=== PATIENT | female | born 1975 | race Caucasian/White ===

== ENCOUNTER 2016-10-15 19:32 | Emergency (ER) | payer MEDICAID ==
--- NOTE | 2016-10-15 20:02 | EDPHY ---
HPI/HX/ROS/PE/MDM Narrative: CHIEF COMPLAINT: Took double dose of Nucynta. HPI: The patient is a 41-year-old female who presents with confusion after taking 4 Nucynta pills (she usually takes 1-2) as she had forgotten she took the first dose. She last took it around 1700 (3 hours ago). Since then she reports a subjective difficulty in understanding what is going on, however this has been improving. She admits an episode of vomiting. She denies taking any other medications tonight. She denies SI or other medical complaints at this time. REVIEW OF SYSTEMS: Aside from elements discussed in the HPI, a comprehensive 10-point review of systems was reviewed and is negative. PMH: Chronic back pain, asthma, heartburn. SOCIAL HISTORY: Former smoker. PHYSICAL EXAM: General: Patient is alert, in no acute distress. ENT: Pupils 6mm and reactive (while sitting in a dark room). ENT inspection normal. Neck: Normal inspection. Full range of motion. Respiratory: No respiratory distress. Breath sounds normal bilaterally. Cardiovascular: Regular rate and rhythm. Strong peripheral pulses. Abdomen: The abdomen is nontender to palpation. There are no peritoneal signs. There are normal bowel sounds. Back: Normal to inspection. No tenderness to palpation. Skin: Normal color. No rash. Warm and dry. Extremities: Normal appearance. Full range of motion. Neuro: Oriented x3. Normal motor function. Normal sensory function. Portions of this note were transcribed by an ED scribe. I personally performed the history, physical exam, and medical decision making; and confirm the accuracy of the information in the transcribed note. ED Course: Patient refused an IV. An EKG was obtained. EKG was ordered and interpreted by myself. Please see [employer] system for official reading. MDM: This patient presents with altered mental status after taking double dose of her Nucynta. On exam, patient states that her symptoms have largely resolved. I see no abnormalities on physical exam nor EKG, nor vital signs. The patient was observed in the emergency department for several hours, past the initial half life of Nucynta and she continues to feel fine. I do not think that further observation or workup is indicated. - Data Points Medications Given: Discontinued Medications Sodium Chloride (Ns) 1,000 mls @ 0 mls/hr IV ONCE ONE PRN Reason: Wide Open Stop: 10/15/16 20:25 Last Admin: 10/15/16 20:30 Dose: Not Given General Time Seen by Provider: 10/15/16 20:02 Initial Vital Signs: Initial Vital Signs Heart Rate 77 10/15/16 19:40 Respiratory Rate 16 10/15/16 19:40 Blood Pressure 163/107 H 10/15/16 19:40 O2 Sat (%) 98 10/15/16 19:40 O2 Delivery Mode Room Air Allergies/Adverse Reactions: No Known Allergies Allergy (Unverified 09/05/13 13:34) Home Medications: Medication Instructions Recorded ADVAIR HFA 115-21 MCG INHALER 09/05/13 Albuterol Hfa Anes Only 09/05/13 Cephalexin [Keflex (RX)] 500 mg PO QID #40 cap 09/05/13 MORPHINE SULFATE [Avinza 45 mg] 09/05/13 Prilosec 20 mg 09/05/13 Sulfamethox/Tmp 800/160 mg 1 tab PO BID #20 tab 09/05/13 [Bactrim Ds] oxyCODONE IR [Oxycodone HCl Ir] 15 mg PO 09/05/13 Departure - Departure Disposition: Home, Routine, Self-Care Clinical Impression: Opiate overdose, Accidental medication overdose Condition: Good Instructions: Chronic Back Pain (ED) Additional Instructions: Follow up with your primary care provider this week for reevaluation. If you need a primary care provider you have been given the telephone number of the on- call outpatient doctor. Return to the emergency department for any serious worsening of condition. Referrals: Henny Melgar MD [Medical Doctor] - As per Instructions Report Scribed for: Ousmane Irby Report Scribed by: Stu Briones Date of Report: 10/15/16 Time of Report: 20:25
[2016-10-15] MEDS ORDERED: NS 1,000 ML IV ONE (20:24)
--- NOTE | 2016-10-15 20:40 | CPEKG ---
Heart Rate: 73 RR Interval: 822 P-R Interval: 176 QRSD Interval: 90 QT Interval: 380 QTC Interval: 419 P [place]: 60 QRS [place]: 5 T Wave [place]: 39 EKG Severity - NORMAL ECG - EKG Impression: SINUS RHYTHM EKG Impression: Agree with above Electronically Signed By: Corbin Anderson 17-Oct-2016 17:51:03
[2016-10-15 21:34] VITALS: BP 137/89; PULSE 88; RESP 18; O2SAT 94
== END 2016-10-15 21:33 | disposition home or self-care (01) ==
DX: T40.2X1A Poisoning by other opioids, accidental (unintentional), initial encounter (principal); J45.909 Unspecified asthma, uncomplicated; Z87.891 Personal history of nicotine dependence

== ENCOUNTER 2016-11-07 17:49 | Inpatient (IN) | payer MEDICAID ==
[2016-11-07] MEDS ORDERED: VANCOMYCIN HCL/NORMAL SALINE 250 ML IV ONE (19:39)
[2016-11-07] MEDS ORDERED: ONDANSETRON DISINTEGRATING 4 MG TAB PO PRN (20:17)
[2016-11-07] MEDS ORDERED: ONDANSETRON 4 MG/2 ML VIAL IVP PRN (20:17)
--- NOTE | 2016-11-07 20:45 | GHP ---
[f rep st] HISTORY AND PHYSICAL DATE OF ADMISSION: 11/07/2016 HISTORY OF PRESENT ILLNESS: The patient is a pleasant 41-year-old female with a past medical histor y of chronic back pain who presents with right lower extremity erythema. She cut it on the side of her bed a couple days ago. It has gotten progressively worse. She has had some fever and chills. There has been no lymphangitic streaking up her leg. She has not had any drenching night sweats. S he has been able to walk. She has never had skin infections before. She denies a history of IV drug use, although there is so me questionable on track noriega on her lower extremities. REVIEW OF SYSTEMS: A complete 10-point review of systems conducted, negative except as noted in the HPI. PAST MEDICAL HISTORY: Chronic back pain, chronic narcotics, asthma. ALLERGIES: Possibly Nucynta. MEDICATIONS: An older list includes fentanyl citrate, oxycodone 15 q. ? p.r.n., Prilosec, morphine sulphate, albuterol, Advair. SOCIAL HISTORY: She works in retail. Does not smoke cigarettes or drink alcohol. FAMILY HISTORY: Reviewed and unremarkable. PHYSICAL EXAM: VITAL SIGNS: Presenting vitals: Temperature 37.4, blood pressure 123/77, pulse 100 , breathing 20 times a minute, 96% on room air. GENERAL: Mild distress. HEENT: Sclerae anicteric . Oropharynx clear. Mucous membranes moist. NECK: Supple without lymphadenopathy or JVD. LUNGS: Clear to auscultation bilaterally. HEART: S1, S2 without murmurs. ABDOMEN: Soft, nontender, no ndistended. LOWER EXTREMITIES: Her left lower extremity is normal. Right lower extremity shows er ythema and edema. It is all below the knee. There is no lymphangitic streaking. There is no ingui nal lymphadenopathy. SKIN: Without rash, although the lower extremities have some small bruises wi th punctate that could be consistent with track noriega. RADIOLOGY: Ankle film shows no fracture. The film is reviewed and interpreted by me. Extremity ve nous ultrasound is pending. Labs are pending. I have discussed the case with CURTIS Albrecht, in the emergency department. ASSESSMENT/PLAN: A 41-year-old female with right lower extremity cellulitis. 1. Cellulitis. Vancomycin started. She received a dose down here. I want to ensure that blood cu ltures have been drawn. 2. Question deep venous thrombosis. Low suspicion for DVT, but follow up on the ultrasound. 3. Chronic pain. Will continue narcotics when medications have been reconciled. I have written he r for oxycodone 10-20 daily p.r.n. now. 4. Prophylaxis. Pharmacologic prophylaxis indicated. We will start low-molecular heparin in the m orning. DISPOSITION: Inpatient status. /[id number]/MODL
[2016-11-07] MEDS ORDERED: ALBUTEROL 60 PUFFS/8 GM MDI IH PRN (21:11)
[2016-11-07] MEDS: oxyCODONE IR 5 MG TAB PO PRN (21:12)
[2016-11-07] MEDS: ACETAMINOPHEN 325 MG TAB PO PRN (21:15)
[2016-11-07] MEDS ORDERED: fentaNYL 25 MCG PATCH TD SCH (21:30)
--- NOTE | 2016-11-07 22:30 | EDPHY ---
H & P Stated Complaint: inj r foot and ankle on bunk bed/now with fever Time Seen by Provider: 11/07/16 18:31 HPI/ROS: Chief complaint: Right leg pain, redness and swelling History of present illness: This is a 41-year-old female who presents to the emergency department for evaluation of right leg pain redness and swelling. Patient reports the onset of symptoms over the last few days. She states a few days ago she struck her leg against a bunk bed cutting it. She has developed pain, redness and swelling around the site. Symptoms are slowly worsening. She denies alleviating factors. She denies other associated signs or symptoms including no fevers or chills, no red streaking up the leg, no chest pain or shortness breath, no abnormal coolness or paresthesias in the right lower extremity. Review of systems: A 10 point review of systems was obtained and other than described above was negative - Personal History LMP (Females 10-55): 15-21 Days Ago Current Tetanus/Diphtheria Vaccine: Yes - Medical/Surgical History Hx Asthma: Yes Hx Chronic Respiratory Disease: No Hx Diabetes: No Hx Cardiac Disease: No Hx Renal Disease: No Hx Cirrhosis: No Hx Alcoholism: No Hx HIV/AIDS: No Hx Splenectomy or Spleen Trauma: No Other PMH: PMH- Chronic lower back pain, asthma, heart burn. no surgeries reported - Social History Smoking Status: Former smoker - Physical Exam Exam: General Appearance: Alert, nontoxic. Eyes: Pupils equal and round no pallor or injection. ENT, Mouth: Mucous membranes moist. Respiratory: There are no retractions, lungs are clear to auscultation. Cardiovascular: Regular rate and rhythm. DP and PT pulses 2+ bilaterally. Gastrointestinal: Abdomen is soft and nontender, no masses, bowel sounds normal. Neurological: Alert and oriented. Strength and sensation intact and symmetrical. Skin: Warm and dry, no rashes. There is erythema and edema to the right foot, ankle and lower leg. Musculoskeletal: The the right leg is edematous compared to the left leg. She has good range of motion of the right leg. Psychiatric: Patient is oriented X 3, there is no agitation. Constitutional: Initial Vital Signs Temperature (C) 37.4 C 11/07/16 17:53 Heart Rate 100 11/07/16 17:53 Respiratory Rate 20 11/07/16 17:53 Blood Pressure 123/77 H 11/07/16 17:53 O2 Sat (%) 96 11/07/16 17:53 O2 Delivery Mode Room Air Allergies/Adverse Reactions: tapentadol [From Nucynta] Allergy (Severe, Verified 11/07/16 20:41) Other-Enter Comments Home Medications: Medication Instructions Recorded Albuterol [Proventil Inhaler HFA 1 - 2 puffs IH Q4H PRN 11/07/16 (*)] fentaNYL [Duragesic 25 MCG Patch 25 mcg TD Q72H 11/07/16 (*)] Medical Decision Making - Diagnostics Imaging Results: Imaging Impressions Ankle X-Ray 11/07/16 19:18 Impression: Negative for fracture or osseous erosive change. Results called and discussed with Luis Lam PA-C, on November 07, 2016 at 1953 hours. Extremity Venous Study 11/07/16 19:18 Impression: 1. Segment of abnormality is seen involving the common femoral vein, which may be the residua of previous surgery or partially recanalized deep vein thrombosis. 2. Superficial thrombophlebitis at the level of the right ankle in the greater saphenous vein. 3. Enlarged right inguinal lymph nodes are probably reactive. Results called and discussed with CURTIS Albrecht, on November 07, 2016 at 2022 hours. Imaging: I viewed and interpreted images myself ED Course/Re-evaluation: Patient is discussed with my secondary supervising physician Dr. Meño Singh. Patient presents to the emergency department for evaluation of pain, redness and swelling to the right lower leg. The leg is neurovascularly intact. Given trauma an x-ray is obtained and negative for acute findings. Ultrasound is obtained to rule out DVT. Superficial thrombophlebitis is noted. I do believe this is likely a cellulitis. I do believe inpatient management is warranted. Patient has extremely difficult IV access. We cannot obtain peripheral IV access the emergency room. Interventional radiology is consulted, Dr. Henrietta Jimenez. She will place a PICC line. At that time blood studies will be obtained and IV antibiotics started. The patient is admitted to Dr. Charles Welsh for further evaluation and care. The plan has been discussed with the patient voiced understanding and agreement with it. Differential Diagnosis: Included but not limited to cellulitis, abscess, DVT, necrotizing fasciitis Departure - Departure Disposition: [facility] Inpatient Acute Clinical Impression: Cellulitis of right leg Superficial thrombophlebitis Qualifiers: Superficial thrombophlebitis-Involved body area: lower extremity Laterality: right Qualified Code(s): I80.01 - Phlebitis and thrombophlebitis of superficial vessels of right lower extremity Condition: Good
[2016-11-07] MEDS ORDERED: CYCLOBENZAPRINE 10 MG TAB PO PRN (22:31)
[2016-11-07 22:52] LABS: ADD MORPH? NO; ADD SCAN? YES; ATYPICAL LYMPHOCYTE FLAG 0 (0-99); FRAGMENT RBC FLAG 0 (0-99); HEMOGLOBIN 10.7 g/dL (12.6-16.3); LIPEMIA HEMOLYSIS FLAG 90 (0-99); MEAN CELL HEMOGLOBIN 28.1 pg (27.9-34.1); MEAN CELL HEMOGLOBIN CONCENTR. 34.5 g/dL (32.4-36.7); MEAN CELL VOLUME 81.4 fL (81.5-99.8); MEAN PLATELET VOLUME 9.1 fL (8.7-11.7); PLATELET CLUMPS FLAG 0 (0-99); PLATELET COUNT 166 10^3/uL (150-400); RED BLOOD CELL COUNT 3.81 10^6/uL (4.18-5.33); RED CELL DISTRIBUTION WIDTH 14.5 % (11.5-15.2)
[2016-11-07 22:54] LABS: LEFT SHIFT FLG 140 (0-99)
[2016-11-07 22:59] LABS: ANION GAP 7 mEq/L (8-16); CALCIUM 8.3 mg/dL (8.5-10.4); CARBON DIOXIDE 24 mEq/l (22-31); CHLORIDE 101 mEq/L (97-110); CREATININE 0.6 mg/dL (0.6-1.0); GLOMERULAR FILTRATION RATE > 60; GLUCOSE 169 mg/dL (70-100); POTASSIUM 3.4 mEq/L (3.5-5.2); SODIUM 132 mEq/L (134-144)
[2016-11-07 23:11] LABS: TROPONIN I < 0.012 ng/mL (0-0.034)
--- NOTE | 2016-11-07 23:12 | CPEKG ---
Heart Rate: 88 RR Interval: 682 P-R Interval: 164 QRSD Interval: 90 QT Interval: 356 QTC Interval: 431 P [place]: 40 QRS [place]: 11 T Wave [place]: 16 EKG Severity - NORMAL ECG - EKG Impression: SINUS RHYTHM Electronically Signed By: Carlos Sampson 08-Nov-2016 08:23:11
[2016-11-07] MEDS: NS 1,000 ML IV SCH (23:27)
[2016-11-07 23:35] LABS: ADD DIFF? YES; SCAN POSITIVE
[2016-11-07 23:43] LABS: PLATELET ESTIMATE ADEQUATE (ADEQ)
[2016-11-07] MEDS ORDERED: IOPAMIDOL (ISOVUE 370) 100 ML BTL IV ONE (23:58)
[2016-11-08] MEDS: ENOXAPARIN 80 MG/0.8 ML SYR SC SCH ×3 (00:25→20:07)
[2016-11-08] MEDS: oxyCODONE IR 5 MG TAB PO PRN ×7 (01:26→22:04)
[2016-11-08] MEDS: ACETAMINOPHEN 325 MG TAB PO PRN ×4 (01:27→22:04)
[2016-11-08 05:04] LABS: ATYPICAL LYMPHOCYTE FLAG 0 (0-99); FRAGMENT RBC FLAG 0 (0-99); HEMATOCRIT 29.8 % (38.0-47.0); HEMOGLOBIN 10.2 g/dL (12.6-16.3); LIPEMIA HEMOLYSIS FLAG 90 (0-99); MEAN CELL HEMOGLOBIN 27.9 pg (27.9-34.1); MEAN CELL HEMOGLOBIN CONCENTR. 34.2 g/dL (32.4-36.7); MEAN CELL VOLUME 81.4 fL (81.5-99.8); MEAN PLATELET VOLUME 9.3 fL (8.7-11.7); PLATELET CLUMPS FLAG 0 (0-99); PLATELET COUNT 168 10^3/uL (150-400); RED BLOOD CELL COUNT 3.66 10^6/uL (4.18-5.33); RED CELL DISTRIBUTION WIDTH 14.6 % (11.5-15.2)
[2016-11-08 05:18] LABS: ADD MORPH? NO; ADD SCAN? YES
[2016-11-08 05:29] LABS: ANION GAP 8 mEq/L (8-16); CALCIUM 8.1 mg/dL (8.5-10.4); CARBON DIOXIDE 24 mEq/l (22-31); CHLORIDE 106 mEq/L (97-110); CREATININE 0.6 mg/dL (0.6-1.0); GLOMERULAR FILTRATION RATE > 60; GLUCOSE 118 mg/dL (70-100); POTASSIUM 3.6 mEq/L (3.5-5.2); SODIUM 138 mEq/L (134-144)
[2016-11-08 06:06] LABS: LEFT SHIFT FLG 110 (0-99)
[2016-11-08 06:26] LABS: ADD DIFF? YES; SCAN POSITIVE
[2016-11-08 06:35] LABS: PLATELET ESTIMATE ADEQUATE (ADEQ); TOXIC GRANULATION PRESENT
[2016-11-08] MEDS: NS 1,000 ML IV SCH (07:50)
[2016-11-08] MEDS ORDERED: ENOXAPARIN 40 MG/0.4 ML SYR SC SCH (09:00)
--- NOTE | 2016-11-08 09:28 | HOSPPROG ---
Hospitalist Progress Note Assessment/Plan: 41 y/o female new to my care today (H&P by Dr. Welsh was reviewed) presenting with # Right leg cellulitis improving -will transition to IV ANCEF -keep leg elevated # New pruritic right sided chest and back pain with CTA neg for PE suspect acute muscle spasm vs pleurisy -trial IV toradol/lidoderm patch/valium # History of chronic pain with opioid dependency -cont home dose of duragesic and oxycodone # Segment of abnormality is on leg doppler involving the common femoral vein, which may be the residual of previous surgery or partially recanalized deep vein thrombosis. -will continue anticoagulation for now and plan to review imaging with radiology Continue inpatient care Subjective: reports severe sharp pain in right breast and radiating to flank and upper back. pain is worse with deep inspiration and movment. no fevers or chills. denies trauma, but has been using her upper body more to get around to compensate for her swollen right leg Objective: Vital Signs Temp Pulse Resp BP Pulse Ox 37.0 C 87 5 L 128/84 H 95 11/08/16 08:00 11/08/16 08:00 11/08/16 08:00 11/08/16 08:00 11/08/16 08:00 Laboratory Results 11/08/16 04:45 11/08/16 04:45 11/07/16 11/08/16 11/09/16 05:59 05:59 05:59 Intake Total 550 Output Total 2 Balance 548 cta chest prelim read neg for PE - Physical Exam Constitutional: uncomfortable Cardiovascular: regular rate and rhythym, no murmur, rub, or gallop, other ( right chest is tender to palp without signs of infection), No JVD Respiratory: no respiratory distress, no rales or rhonchi, clear to auscultation Gastrointestinal: normoactive bowel sounds, soft, non-tender abdomen, no palpable masses, No guarding, No rebound Genitourinary: no bladder fullness, no bladder tenderness, no renal bruits Skin: other (right lower leg with improving erythema without signs of abscess slight induration over lateral calf wihtout fluctuance) Neurologic: AAOx3, sensation intact bilaterally ICD10 Worksheet Patient Problems: Problems Problem Status Onset Cellulitis of right leg Acute Superficial thrombophlebitis Acute
[2016-11-08] MEDS ORDERED: LIDOCAINE 5% 1 EA PATCH TD SCH (09:30)
[2016-11-08] MEDS ORDERED: VANCOMYCIN HCL/NORMAL SALINE 250 ML IV SCH (11:30)
[2016-11-08] MEDS: KETOROLAC 30 MG/1 ML SDV IVP PRN ×3 (11:49→23:57)
[2016-11-08] MEDS: ceFAZolin 2 GM/DEXTROSE 100 ML IV SCH ×2 (14:03→23:24)
--- NOTE | 2016-11-08 15:45 | WOCRNPDOC ---
JOSE J Advanced Assessment Note - Skin Integrity Problem, Advanced Assess Left Hip Dressing Type: Allevyn Life Dressing Description: Shadowed Exudate Amount: Excessive Exudate Characteristic(s): Sanguinopurulent, Thick Integumentary Issue Intervention: Dressing Changed (Hydrofera blue tunnel; Cavilon prep; steristrip; Allevyn (small)), Dressing Initialed & Dated Nguyen Wound Tissue: Erythema (radiating 2 cm outward from wound margin), Non- blanching, Swollen, Indurated Nguyen Wound Swelling: Mild Wound Bed Color: Red, Yellow Wound Bed Constitution: Undermining (1 cm circumferentially), Mixed Loose & Adhered Slough/Eschar Wound Edges: Not Attached, Well Defined Site Odor: Slight, Musky Site Measurement - Head-to-Toe Length X Width X Depth (cm): 2 x 1.1 x 3. 1cm circumferential undermining) Pressure Injury Stage: Stage 4 (based on presentation ) Pressure Injury Present on Admit: Yes (noted on principle software engineer assessment) Skin Integrity Problem Comment: Copious amount of zykece-ukycf-egg purulent drainage on dressing and extruding from wound upon dressing removal. 50% of the wound opening was occluded by semi-dry slough, most of which was readily debrided during an irrigation of the wound with sterile NS and gauze surface cleaning. Patient endorsed painful tenderness to slight touch at erythematous, indurated intact periwound. Have noted that wound is a pressure injury based on patient statement, "I thought I was sore from laying on my side.". Following wound irrigation, filled void space with Hydrofera blue tunnel dressing, secured with steristrips; protected site with Allevyn dressing. Explained care as provided; MISBAH Clements present, assisting.
[2016-11-08 16:18] LABS: ALBUMIN 2.6 g/dL (3.5-5.0); BILIRUBIN,TOTAL 0.6 mg/dL (0.1-1.4); BILIRUBIN-CONJUGATED 0.5 mg/dL (0.0-0.5); BILIRUBIN-UNCONJUGATED 0.1 mg/dL (0.0-1.1); TOTAL PROTEIN 5.4 g/dL (6.3-8.2)
[2016-11-08] MEDS: DIAZEPAM 5 MG TAB PO PRN ×2 (17:14→22:04)
--- NOTE | 2016-11-08 19:40 | GCON ---
[f rep st] CONSULTATION INFECTIOUS DISEASE CONSULTATION DATE OF CONSULTATION: 11/08/2016 REFERRING PHYSICIAN: Haider Phan DO REASON FOR CONSULTATION: Bacteremia. HISTORY OF PRESENT ILLNESS: A 41-year-old woman with a chronic back pain and history of asthma, who presented to the emergency room yesterday with complaints of right lower pain and redness status post hitting a bed a couple of days prior to admission. She denies that she is being abused. She denies knowledge of past history of DVT. She does admit that a couple of days ago she did have a sore throat. Her current primary complaint is severe right upper chest pain that is worse with deep inspiration and movement. The patient is very diaphoretic at the time of exam and is difficult to get a history from. She denies a history of IV drug use, but has obvious track noriega and/or bruises on her lower extremities. She was started on IV vancomycin on admission and transitioned to cefazolin today. PAST MEDICAL HISTORY: Chronic back pain, chronic narcotic use, asthma/COPD. ALLERGIES: No antibiotic allergies. MEDICATIONS: Fentanyl, oxycodone, Prilosec, morphine, albuterol, Advair, Tylenol, cefazolin 2 g IV q.8h. (started 11/08/2016), Valium, Lovenox, Duragesic , Toradol, lidocaine, Zofran. 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 Quit cigarettes years ago. No alcohol and denies drugs. FAMILY HISTORY: Negative for DVT. REVIEW OF SYSTEMS: A complete 10-point review of systems was performed and was negative, except as mentioned in the HPI. . PHYSICAL EXAM: VITAL SIGNS: Blood pressure 143/91, heart rate 97, respiratory rate, saturation 95% on room air, temperature 35.9. GENERAL: This is a diaphoretic woman who appears in distressed secondary to upper chest pain. HEENT: Fair dentition, moist mucous membranes, no exudates or ulcerations. NECK: Supple. No lymphadenopathy. No meningismus. CARDIOVASCULAR: Tachycardic. Regular rate. Faint systolic murmur. EXTREMITIES: Patient has scattered bruises/track noriega of her lower extremities. There is erythema on the right lower extremity, most prominent on the medial ankle, with associated a thrombosed vein tender to palpation. NEUROLOGICAL: Distractible, but oriented, following commands, and moving all 4 extremities equally. SKIN: As per her exam above, no peripheral stigmata of endocarditis, but noted track noriega. PULMONARY: Lungs were clear. No crackles. Of note, patient has a left hip wound that was not noted by me at the time of my exam. It was later reported to me by Wound Care that is 3 cm in depth LABORATORY: White count 7000 with 43% neutrophils, 50% bands, platelets of 168 , hematocrit 39. Creatinine 0.6. LFTs are pending. Chest CT was personally reviewed by me with Radiology and shows underlying emphysema, but no pleural effusion, no aortic dissection, no bony abnormalities to account for her pain, and no PE. Blood cultures from admission on 11/07: Both sets are growing group A strep. ASSESSMENT AND PLAN: This is a 41-year-old woman with right lower extremity superficial thrombophlebitis of the right ankle and associated cellulitis with associated group A Streptococcus bacteremia. Suspect source could be related to IV drug use. The patient does not admit to this at this time. Also, concern for this severe right upper chest pain, not clearly musculoskeletal, CT scan does not show potential source for this pain. Could consider T-spine disk or bony involvement with radiation to this area. 1. Group A Streptococcus bacteremia. 2. Right lower extremity cellulitis with superficial thrombophlebitis. 3. 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 4. Bandemia. 5. Left hip wound. RECOMMENDATIONS: 1. Continue cefazolin 2 g IV q.8h. 2. Repeat blood cultures in a.m. after 48 hours of antibiotics. 3. Low threshold to obtain echocardiogram based on additional clinical information. 4. T-spine MRI with contrast to evaluate for diskitis/osteomyelitis. 5. Add on LFTs, HIV testing, and drug screening. 6. I did not evaluate left hip wound today. I was unaware of its presence. Will re-evaluate tomorrow. Thank you for this consultation. We will continue to follow on a daily basis. /[id number]/MODL MTDD
[2016-11-08] MEDS: PATCH REMOVAL 1 EA PATCH TD SCH (20:12)
[2016-11-08] MEDS ORDERED: HYDROmorphONE/DILAUDID 2 MG/ML INJ IVP ONE (21:41)
[2016-11-08] MEDS ORDERED: GADOBUTROL 10 ML VIAL IVP ONE (22:40)
[2016-11-09] MEDS: ACETAMINOPHEN 325 MG TAB PO PRN ×2 (04:33→10:08)
[2016-11-09] MEDS: oxyCODONE IR 5 MG TAB PO PRN ×6 (04:33→23:46)
[2016-11-09] MEDS ORDERED: fentaNYL 25 MCG PATCH TD SCH (04:50)
[2016-11-09 05:12] LABS: ANION GAP 7 mEq/L (8-16); CALCIUM 7.9 mg/dL (8.5-10.4); CARBON DIOXIDE 24 mEq/l (22-31); CHLORIDE 108 mEq/L (97-110); CREATININE 0.6 mg/dL (0.6-1.0); GLOMERULAR FILTRATION RATE > 60; GLUCOSE 122 mg/dL (70-100); POTASSIUM 3.4 mEq/L (3.5-5.2); SODIUM 139 mEq/L (134-144)
[2016-11-09 05:17] LABS: % IMMATURE GRANULYOCYTES 0.6 % (0.0-1.1); ABSOLUTE IMMATURE GRANULOCYTES 0.06 10^3/uL (0.00-0.10); ADD DIFF? NO; ADD MORPH? NO; ADD SCAN? YES; FRAGMENT RBC FLAG 0 (0-99); HEMATOCRIT 30.1 % (38.0-47.0); HEMOGLOBIN 10.4 g/dL (12.6-16.3); LEFT SHIFT FLG 50 (0-99); LIPEMIA HEMOLYSIS FLAG 90 (0-99); MEAN CELL HEMOGLOBIN 28.2 pg (27.9-34.1); MEAN CELL HEMOGLOBIN CONCENTR. 34.6 g/dL (32.4-36.7); MEAN CELL VOLUME 81.6 fL (81.5-99.8); MEAN PLATELET VOLUME 8.9 fL (8.7-11.7); PLATELET CLUMPS FLAG 40 (0-99); PLATELET COUNT 177 10^3/uL (150-400); RED BLOOD CELL COUNT 3.69 10^6/uL (4.18-5.33); RED CELL DISTRIBUTION WIDTH 14.9 % (11.5-15.2)
[2016-11-09] MEDS: ceFAZolin 2 GM/DEXTROSE 100 ML IV SCH ×3 (05:19→21:26)
[2016-11-09 05:26] LABS: ATYPICAL LYMPHOCYTE FLAG 120 (0-99)
[2016-11-09 06:16] LABS: PHENCYCLIDINE URINE BCH < 6 ng/ml (NEGATIVE); PHENCYCLIDINE URINE BCH NEGATIVE (NEGATIVE); TETRAHYDROCANNABINOL URINE < 5 ng/mL (NEGATIVE); TETRAHYDROCANNABINOL URINE NEGATIVE (NEGATIVE)
[2016-11-09 06:19] LABS: SCAN NEGATIVE
[2016-11-09] MEDS: KETOROLAC 30 MG/1 ML SDV IVP PRN ×4 (08:00→19:36)
[2016-11-09] MEDS: ENOXAPARIN 80 MG/0.8 ML SYR SC SCH ×2 (08:01→21:26)
[2016-11-09] MEDS: LIDOCAINE 5% 1 EA PATCH TD SCH (08:03)
[2016-11-09] MEDS: DIAZEPAM 5 MG TAB PO PRN ×2 (10:08→21:34)
--- NOTE | 2016-11-09 12:16 | HOSPPROG ---
Hospitalist Progress Note Assessment/Plan: 41 y/o female presenting with # Sepsis with Group A Strep Bacteremia with Right leg cellulitis improving -continue IV Ancef -keep leg elevated # Pruritic right sided chest and back pain with CTA neg for PE and MRI negative for referred pain from Tspine infection suspect suspect acute muscle spasm vs pleurisy -cont IV toradol/lidoderm patch/valium -will increase oxycodone -will consider repeating a cta if pain persists to reevaluate for PE # Left hip wound (present on admission) -cont wound care # History of chronic pain with opioid dependency -cont home dose of duragesic and oxycodone #normacytic anemia -recommend outpt workup # Segment of abnormality is on leg doppler involving the common femoral vein, which may be the residual of previous surgery or partially recanalized deep vein thrombosis. -I discussed the case with Dr. Ray who recommends treatment for DVT given his review of the images. Will plan on repeating a doppler prior to discharge to reassess. Continue inpatient care Subjective: continues to have 10/10 sharp right pleuritic chest pain radiating to back. Denies improvement with toradol or current opiates. Denies pain in her right leg. improved fevers Objective: Vital Signs Temp Pulse Resp BP Pulse Ox 36.7 C 92 18 119/78 93 11/09/16 11:49 11/09/16 11:49 11/09/16 11:49 11/09/16 11:49 11/09/16 11:49 Microbiology 11/07/16 23:20 Blood Panel (PCR) - Final Blood Strep Pyogenes Group A Laboratory Results 11/09/16 04:45 11/09/16 04:45 11/08/16 11/09/16 11/10/16 05:59 05:59 05:59 Intake Total 550 700 Output Total 2 300 Balance 548 700 -300 - Physical Exam Constitutional: no apparent distress, appears nourished, not in pain Cardiovascular: regular rate and rhythym, no murmur, rub, or gallop Respiratory: no respiratory distress, no rales or rhonchi, clear to auscultation Gastrointestinal: normoactive bowel sounds, soft, non-tender abdomen, no palpable masses Skin: other (improving erythema right leg without abscess; left hip wound with clean intact dressing) Neurologic: AAOx3, sensation intact bilaterally ICD10 Worksheet Patient Problems: Problems Problem Status Onset Cellulitis of right leg Acute Superficial thrombophlebitis Acute
--- NOTE | 2016-11-09 12:32 | WOCRNPDOC ---
WOCRN Advanced Assessment Note - Skin Integrity Problem, Advanced Assess Left Hip Dressing Type: Allevyn Life, Hydrofera Blue (tunnel dressing) Dressing Description: Intact, Shadowed Exudate Amount: Scant Exudate Characteristic(s): Purulent Integumentary Issue Intervention: Dressing Removed Silke Wound Tissue: Erythema (minimal silke wound) Silke Wound Swelling: None Wound Bed Constitution: Granulation Tissue Wound Edges: Not Attached Skin Integrity Problem Comment: Wound bed full of fat and granulation tissue. Packing removed and hydrofera blue ready had turned to white and was ready to be changed. Orders will be modified to include silver collagen to facilitate filling in of wound. Minimal purulence present. Wound does not present as a pressure injury to this nurse, but rather an abcess site that has self drained. Discussed after care with patient as dressing will need to be changed every 2-3 days when home. Pt reports that her sister can help and can come in and learn how to change the dressing. Patient will need follow up at outpatient wound clinic and brochure along with instructions to make appt were given to patient. Of note, patient has mulitple small scars and scabs of unknown etiology. Wound care will follow up Tuesday 11/14.
[2016-11-09 13:25] LABS: PROTEIN C ACTIVITY 48 % (70 - 150)
[2016-11-09] MEDS ORDERED: HYDROmorphONE/DILAUDID 2 MG/ML INJ IVP PRN ×2 (13:38→15:28)
[2016-11-09 15:01] LABS: PROTEIN S FREE ANTIGEN 117 % (50 - 160)
[2016-11-09 15:35] LABS: ANTITHROMBIN 3 ANTIGEN 70 % (80 - 120)
--- NOTE | 2016-11-09 19:06 | PCMIDPN ---
Assessment/Plan: Assessment/Plan: * Sepsis due to group A strep bacteremia with associated right lower extremity cellulitis and probable left hip abscess which has spontaneously drained: Repeat blood cultures pending to assess for clearing of bacteremia. Persistent cellulitis over right lower extremity. Left hip wound consistent with prior abscess which appears to have drained spontaneously; does have several blind areas of tracking to approximately 2 cm; some fibrinous slough at wound margin is present. Continue cefazolin and follow clinical course. Chest CT and T- spine MRI negative for localizing findings. Definitive therapy complex given concern for underlying injection drug use based on clinical findings. Have explained to patient that current condition requires continued hospital care. 11/09/16 19:00 Subjective: Patient complains of pain all over and inadequate pain control. Wants to know when she can leave the hospital. Objective: Vital Signs Temp Pulse Resp BP Pulse Ox 36.7 C 89 16 114/73 96 11/09/16 15:31 11/09/16 15:31 11/09/16 15:31 11/09/16 15:31 11/09/16 15:31 Microbiology 11/07/16 23:20 Blood Panel (PCR) - Final Blood Strep Pyogenes Group A Laboratory Results 11/09/16 04:45 11/09/16 04:45 11/08/16 11/09/16 11/10/16 05:59 05:59 05:59 Intake Total 550 700 500 Output Total 2 600 Balance 548 700 -100 Cefazolin # 2 Blood cultures 11/09/[address] scan of chest without focal findings T-spine MRI without focal findings - Physical Exam General Appearance: alert, no apparent distress EENT: pharynx normal, No conjunctival petechiae Respiratory: lungs clear, No respiratory distress Cardiac/Chest: regular rate, rhythm, No systolic murmur Extremities: inflammation (Right lower extremity with cellulitis present without focal fluctuance or bulla; left hip with wound consistent with abscess cavity with some fibrinous slough along margin; several blind tunnels probe to approximately 2 cm; no palpable bone; mild amount of purulent drainage at base of wound but no further purulence expressed) Skin: No embolic lesions - Line/s RUE PICC Lines: No drainage, No erythema ICD10 Worksheet Patient Problems: Problems Problem Status Onset Cellulitis of right leg Acute Superficial thrombophlebitis Acute
[2016-11-09] MEDS: PATCH REMOVAL 1 EA PATCH TD SCH (21:26)
[2016-11-10] MEDS: oxyCODONE IR 5 MG TAB PO PRN ×5 (04:44→22:06)
[2016-11-10] MEDS: KETOROLAC 30 MG/1 ML SDV IVP PRN (05:23)
[2016-11-10] MEDS: ceFAZolin 2 GM/DEXTROSE 100 ML IV SCH (05:44)
[2016-11-10 06:02] LABS: ADD DIFF? NO; ADD MORPH? NO; ADD SCAN? YES; FRAGMENT RBC FLAG 0 (0-99); HEMATOCRIT 29.9 % (38.0-47.0); HEMOGLOBIN 10.2 g/dL (12.6-16.3); LEFT SHIFT FLG 10 (0-99); LIPEMIA HEMOLYSIS FLAG 90 (0-99); MEAN CELL HEMOGLOBIN 27.9 pg (27.9-34.1); MEAN CELL HEMOGLOBIN CONCENTR. 34.1 g/dL (32.4-36.7); MEAN CELL VOLUME 81.9 fL (81.5-99.8); MEAN PLATELET VOLUME 8.9 fL (8.7-11.7); PLATELET CLUMPS FLAG 0 (0-99); PLATELET COUNT 206 10^3/uL (150-400); RED BLOOD CELL COUNT 3.65 10^6/uL (4.18-5.33); RED CELL DISTRIBUTION WIDTH 14.8 % (11.5-15.2)
[2016-11-10 06:04] LABS: ATYPICAL LYMPHOCYTE FLAG 150 (0-99)
[2016-11-10 06:11] LABS: ANION GAP 6 mEq/L (8-16); CALCIUM 8.3 mg/dL (8.5-10.4); CARBON DIOXIDE 25 mEq/l (22-31); CHLORIDE 103 mEq/L (97-110); CREATININE 0.5 mg/dL (0.6-1.0); GLOMERULAR FILTRATION RATE > 60; GLUCOSE 109 mg/dL (70-100); POTASSIUM 3.3 mEq/L (3.5-5.2); SODIUM 134 mEq/L (134-144)
[2016-11-10 07:33] LABS: THROMBIN TIME 22 sec (15 - 23)
[2016-11-10 07:34] LABS: SCAN NEGATIVE
[2016-11-10] MEDS: ENOXAPARIN 80 MG/0.8 ML SYR SC SCH ×2 (08:18→20:21)
[2016-11-10] MEDS: LIDOCAINE 5% 1 EA PATCH TD SCH (08:21)
--- NOTE | 2016-11-10 10:01 | PCMIDPN ---
Assessment/Plan: 1. Group a strep bacteremia with concomitant right lower extremity cellulitis and small left hip abscess: Repeat blood cultures are pending. Will change Ancef to high-dose penicillin. I do not feel at this point that she requires clindamycin. The hip abscess has drained, and has no surrounding cellulitis. The right lower extremity continues to be beet red; clinical suspicion for necrotizing fasciitis/ cellulitis is low. Have asked her to please keep her right lower extremity elevated, and I demarcated the area of erythema. I explained to her that she needs to continue to stay in the hospital for now. Antibiotics moving forward will be problematic given her social situation. 2. Miscellaneous: Patient states last Tdap was in the past 5 years. HIV testing negative. Will check hepatitis C antibody while she is in-house. Subjective: States she only slept 3 hours secondary to pain. Says that her pain is "10/10. " Denies nausea vomiting. No shaking chills. Objective: Ancef 2 g IV q.8 hours day 2. Afebrile Vital Signs Temp Pulse Resp BP Pulse Ox 36.7 C 75 16 132/91 H 95 11/10/16 07:45 11/10/16 07:45 11/10/16 07:45 11/10/16 07:45 11/10/16 07:45 Microbiology 11/07/16 23:20 Blood Panel (PCR) - Final Blood Strep Pyogenes Group A Laboratory Results 11/10/16 05:40 11/10/16 05:40 11/09/16 11/10/16 11/11/16 05:59 05:59 05:59 Intake Total 700 500 Output Total 1200 Balance 700 -700 November 09 blood cultures x2 are pending November 07 blood cultures with group a strep HIV antibody test negative - Physical Exam General Appearance: other (Disheveled, looks tired.) EENT: No scleral icterus Respiratory: lungs clear Cardiac/Chest: regular rate, rhythm, No diastolic murmur, No systolic murmur Extremities: other (Right lower extremity with beet red erythema, warmth and tenderness. No bullae. No tenderness out of proportion to exam findings. Left hip with dime-sized opening consistent with spontaneously drained abscess. No surrounding cellulitis.) Skin: No embolic lesions ICD10 Worksheet Patient Problems: Problems Problem Status Onset Cellulitis of right leg Acute Superficial thrombophlebitis Acute
--- NOTE | 2016-11-10 10:15 | HOSPPROG ---
Hospitalist Progress Note Assessment/Plan: 41 y/o female presenting with # Sepsis with Group A Strep Bacteremia with Right leg cellulitis (improving erythema overall, but will increased induration over calf) -PCN started by ID -keep leg elevated # Pruritic right sided chest and back pain with CTA neg for PE and MRI negative for referred pain from Tspine infection suspect cute muscle spasm vs pleurisy -dc [place] -increased duragesic to 50mcg (done 11/10) -continue oxycodone -will continue iv dilaudid for now only for severe breakthrough pain #Segment of abnormality on leg doppler involving the common femoral vein, which may be the residual of previous surgery or partially recanalized deep vein thrombosis. -I discussed the case with Dr. Ray who recommends treatment for DVT given his review of the images. Will plan on repeating a doppler prior to discharge to reassess need for anticoagulation. # Left hip wound (present on admission) -cont wound care # History of chronic pain with opioid dependency -cont home dose of duragesic and oxycodone #normacytic anemia -recommend outpt workup # Continue inpatient care dispo: she will need at least 2 weeks of IVABX which is complicated by the fact that there is suspicion of drug abuse which the patient adamantly denies Subjective: continues to have severe sharp 10/10 right sided pleuritic chest pain. improving right leg redness/pain. toelrating diet. no fevers or chills. no BM Objective: Vital Signs Temp Pulse Resp BP Pulse Ox 36.7 C 75 16 132/91 H 95 11/10/16 07:45 11/10/16 07:45 11/10/16 07:45 11/10/16 07:45 11/10/16 07:45 Microbiology 11/07/16 23:20 Blood Panel (PCR) - Final Blood Strep Pyogenes Group A Laboratory Results 11/10/16 05:40 11/10/16 05:40 11/09/16 11/10/16 11/11/16 05:59 05:59 05:59 Intake Total 700 500 Output Total 1200 Balance 700 -700 - Physical Exam Constitutional: uncomfortable Cardiovascular: regular rate and rhythym, no murmur, rub, or gallop, other ( right chest without erythema/induration/fluctuance) Respiratory: no respiratory distress, no rales or rhonchi, clear to auscultation Gastrointestinal: normoactive bowel sounds, soft, non-tender abdomen, no palpable masses, No guarding, No rebound, No distension Skin: other (improving erythema right leg with increased induration over calf without fluctuance or severe tenderness to palp) Neurologic: AAOx3, sensation intact bilaterally ICD10 Worksheet Patient Problems: Problems Problem Status Onset Cellulitis of right leg Acute Superficial thrombophlebitis Acute
[2016-11-10 10:43] LABS: PLATELET ESTIMATE ADEQUATE (ADEQ)
[2016-11-10] MEDS: PENICILLIN G POTASSIUM 4,000,000 UNIT in D5W 100 ML IV SCH ×4 (10:53→22:07)
[2016-11-10] MEDS: HYDROmorphONE/DILAUDID 2 MG/ML INJ IVP PRN ×3 (11:04→20:20)
[2016-11-10] MEDS: fentaNYL 50 MCG PATCH TD SCH (11:22)
[2016-11-10] MEDS ORDERED: IOPAMIDOL (ISOVUE 370) 100 ML BTL IV ONE (11:25)
[2016-11-10 11:49] LABS: PROTEIN S ACTIVITY 120 % (50 - 160)
[2016-11-10 13:48] LABS: PROTEIN C ANTIGEN 48 % (70-150)
[2016-11-10] MEDS: DIAZEPAM 5 MG TAB PO PRN ×2 (14:43→22:07)
[2016-11-10] MEDS: FAMOTIDINE 20 MG TAB PO SCH (20:21)
[2016-11-10] MEDS: PANTOPRAZOLE SODIUM 40 MG TAB PO SCH (20:21)
[2016-11-10] MEDS: CALCIUM CARBONATE 500 MG CHEWABLE TAB PO PRN (20:21)
[2016-11-10] MEDS: PATCH REMOVAL 1 EA PATCH TD SCH (22:06)
[2016-11-11] MEDS: PENICILLIN G POTASSIUM 4,000,000 UNIT in D5W 100 ML IV SCH ×6 (02:25→21:43)
[2016-11-11] MEDS: HYDROmorphONE/DILAUDID 1 MG/ML SYR IVP PRN ×5 (02:26→21:29)
[2016-11-11] MEDS: oxyCODONE IR 5 MG TAB PO PRN ×6 (05:36→23:54)
[2016-11-11] MEDS: PANTOPRAZOLE SODIUM 40 MG TAB PO SCH ×2 (08:48→21:29)
[2016-11-11] MEDS: LIDOCAINE 5% 1 EA PATCH TD SCH (08:48)
[2016-11-11] MEDS: FAMOTIDINE 20 MG TAB PO SCH ×2 (08:48→21:29)
[2016-11-11] MEDS: ENOXAPARIN 80 MG/0.8 ML SYR SC SCH ×2 (08:49→21:30)
[2016-11-11] MEDS ORDERED: ALTEPLASE 2 MG VIAL IVP ONE (15:53)
--- NOTE | 2016-11-11 16:44 | PCMIDPN ---
Assessment/Plan: Assessment/Plan: 1. Group A strep bacteremia with RLE cellulitis and left hip abscess: -Also with superficial thrombophlebitis - s/p spontaneous drainage of left hip abscess. now packed. -right leg improving but has two indurated areas that may develop into abscesses. REcommend warm compresses. - f/u blood cx from 11/09/16 thus far ngtd -Thoracic MRI: negative. -Currently on PCn for directive therapy for above. -Will need at least two weeks from negative cx at minimum given bacteremia -Follow clinically. May need USG of leg to evaluate for fluid collection if doesn't improve further with warm compresses. MEds PCN 4MU q4 Subjective: Afebrile. few spots on leg still hurt. less redness overall on the leg. denies sob, abd pain or diarrhea. Objective: Vital Signs Temp Pulse Resp BP Pulse Ox 36.9 C 91 18 116/75 92 11/11/16 11:20 11/11/16 11:20 11/11/16 11:20 11/11/16 11:20 11/11/16 11:20 Laboratory Results 11/10/16 05:40 11/10/16 05:40 11/10/16 11/11/16 11/12/16 05:59 05:59 05:59 Intake Total 500 924 Output Total 1200 1200 Balance -700 -056 - Physical Exam General Appearance: alert, no apparent distress Respiratory: lungs clear Cardiac/Chest: regular rate, rhythm Extremities: other (left hip: wound packed with hydrafera blue. no surrounding erythema or induration. nontender. ) Abdomen: normal bowel sounds, non-tender, soft, No distended Skin: erythema (right leg: minimal erythema noted. a couple of indurated areas which could be early abscesses. tender to palpate. ) ICD10 Worksheet Patient Problems: Problems Problem Status Onset Cellulitis of right leg Acute Superficial thrombophlebitis Acute
--- NOTE | 2016-11-11 18:06 | HOSPPROG ---
Hospitalist Progress Note Assessment/Plan: DIAGNOSES: # Sepsis with Group A Strep Bacteremia with Right leg cellulitis (improving erythema overall, but will increased induration over calf) -PCN started by ID -keep leg elevated -There is a small area located centrally within her calf infection that could potentially be trying to organize into abscess. Will need to watch that closely # Pruritic right sided chest and back pain with CTA neg for PE and MRI negative for referred pain from Tspine infection suspect cute muscle spasm vs pleurisy -increased duragesic to 50mcg (done 11/10) -continue oxycodone -will continue iv dilaudid for now only for severe breakthrough pain #Segment of abnormality on leg doppler involving the common femoral vein, which may be the residual of previous surgery or partially recanalized deep vein thrombosis. -I discussed the case with Dr. Ray who recommends treatment for DVT given his review of the images. Will plan on repeating a doppler prior to discharge to reassess need for anticoagulation. # Left hip wound (present on admission) -cont wound care # History of chronic pain with opioid dependency -cont home dose of duragesic and oxycodone #normacytic anemia -recommend outpt workup SUBJECTIVE: still has some pain at the right chest shoulder area but no shortness of breath or cough and no other changes there Leg feels better OBJECTIVE Vitals reviewed: stable without fever Exam: alert oriented skin warm dry color ok resps not labored lungs clear BSs heart regular abd soft nondistended nontender, bowel sounds present limbs her calf cellulitis area continues to improve but there are still significant areas of cellulitis. There is a small area centrally that is a little more raised and more tender than the other areas. Social soft but I do not feel actual definite fluctuance there. This will require continued watch for potential abscess formation. There is no sign of any necrosis anywhere. Otherwise legs are warm, no edema iv site ok Objective: Vital Signs Temp Pulse Resp BP Pulse Ox 37.0 C 83 18 145/92 H 93 11/11/16 17:05 11/11/16 17:05 11/11/16 17:05 11/11/16 17:05 11/11/16 17:05 Laboratory Results 11/10/16 05:40 11/10/16 05:40 11/10/16 11/11/16 11/12/16 06:59 06:59 06:59 Intake Total 500 924 Output Total 9757 1200 Krhmivv -700 -785 ICD10 Worksheet Patient Problems: Problems Problem Status Onset Cellulitis of right leg Acute Superficial thrombophlebitis Acute
[2016-11-11] MEDS: CALCIUM CARBONATE 500 MG CHEWABLE TAB PO PRN (21:29)
[2016-11-11] MEDS: DIAZEPAM 5 MG TAB PO PRN (21:29)
[2016-11-11] MEDS: PATCH REMOVAL 1 EA PATCH TD SCH (21:30)
[2016-11-12] MEDS: HYDROmorphONE/DILAUDID 1 MG/ML SYR IVP PRN ×6 (02:12→22:10)
[2016-11-12] MEDS: PENICILLIN G POTASSIUM 4,000,000 UNIT in D5W 100 ML IV SCH ×6 (02:12→22:10)
[2016-11-12] MEDS: oxyCODONE IR 5 MG TAB PO PRN ×6 (06:08→21:25)
[2016-11-12] MEDS: PANTOPRAZOLE SODIUM 40 MG TAB PO SCH ×2 (09:13→21:25)
[2016-11-12] MEDS: FAMOTIDINE 20 MG TAB PO SCH ×2 (09:13→21:24)
[2016-11-12] MEDS: LIDOCAINE 5% 1 EA PATCH TD SCH (09:13)
[2016-11-12] MEDS: ENOXAPARIN 80 MG/0.8 ML SYR SC SCH ×2 (09:14→21:25)
--- NOTE | 2016-11-12 14:55 | HOSPPROG ---
Hospitalist Progress Note Assessment/Plan: DIAGNOSES: # Sepsis with Group A Strep Bacteremia with Right leg cellulitis (improving erythema overall, but will increased induration over calf) -on iv PCN, keep leg elevated -There is a small area located centrally within her calf infection that could potentially be trying to organize into abscess. Will ultrasound today to be certain no abscess # Pruritic right sided chest and back pain with CTA neg for PE and MRI negative for referred pain from Tspine infection suspect cute muscle spasm vs pleurisy -increased duragesic to 50mcg (done 11/10) -continue oxycodone -will continue iv dilaudid for now only for severe breakthrough pain #Segment of abnormality on leg doppler involving the common femoral vein, which may be the residual of previous surgery or partially recanalized deep vein thrombosis. -Dr. Ray recommends treatment for DVT given his review of the images. # Left hip wound (present on admission) is no longer draining -cont wound care # History of chronic pain with opioid dependency -cont home dose of duragesic and oxycodone #normacytic anemia -recommend outpt workup SUBJECTIVE: less pain today no fever sxs able to walk more easily OBJECTIVE Vitals reviewed: stable without fever Exam: alert oriented skin warm dry color ok resps not labored lungs clear BSs heart regular abd soft nondistended nontender, bowel sounds present limbs notably less cellulitis today. There is still a small area centrally on medial R calve that is more raised and tender than the other areas. Centrally it still has a softer feel that is borderline for fluctuance,and this requires further evaluation. There is no sign of any necrosis anywhere. iv site ok Objective: Vital Signs Temp Pulse Resp BP Pulse Ox 36.7 C 99 16 127/92 H 92 11/12/16 12:45 11/12/16 12:45 11/12/16 12:45 11/12/16 12:45 11/12/16 12:45 Laboratory Results 11/10/16 05:40 11/10/16 05:40 11/11/16 11/12/16 11/13/16 06:59 06:59 06:59 Intake Total 924 1293 Output Total 1200 900 Balance -276 393 ICD10 Worksheet Patient Problems: Problems Problem Status Onset Cellulitis of right leg Acute Superficial thrombophlebitis Acute
--- NOTE | 2016-11-12 16:59 | PCMIDPN ---
Assessment/Plan: Assessment/Plan: 1. Group A strep bacteremia with RLE cellulitis and left hip abscess: -Also with superficial thrombophlebitis - s/p spontaneous drainage of left hip abscess. now packed. -right leg improving but has two indurated areas that may develop into abscesses. REcommend warm compresses. - f/u blood cx from 11/09/16 thus far ngtd. D#4 -Thoracic MRI: negative. -Currently on PCn for directive therapy for above. -Will need at least two weeks from negative cx at minimum given bacteremia -USG pending. IF focal collectoin noted, would benefit with I & D and may need surgery to see her for that. 2. HCV antibody positive: - she knew this from past positive test. she has never had treatment or follow up. -will need further work up. Start with HCV RNA. If positive will need further work up as OP. MEds PCN 4MU q4 Subjective: Afebrile. redness has continued to improve except for 1-2 focal areas which appear like there is a small abscess underneath. denies sob, abd pain or diarrhea. Objective: Vital Signs Temp Pulse Resp BP Pulse Ox 36.7 C 92 16 123/88 H 95 11/12/16 15:34 11/12/16 15:34 11/12/16 15:34 11/12/16 15:34 11/12/16 15:34 Laboratory Results 11/10/16 05:40 11/10/16 05:40 11/11/16 11/12/16 11/13/16 05:59 05:59 05:59 Intake Total 924 1293 Output Total 1200 900 Balance -276 393 - Physical Exam General Appearance: alert, no apparent distress Respiratory: lungs clear Cardiac/Chest: regular rate, rhythm Extremities: swelling Abdomen: normal bowel sounds, non-tender, soft, No distended Skin: erythema (RLE : two focal areas of erytehma, hot, minimal fluctuance. tender. left hip dressing) ICD10 Worksheet Patient Problems: Problems Problem Status Onset Cellulitis of right leg Acute Superficial thrombophlebitis Acute
[2016-11-12] MEDS: DIAZEPAM 5 MG TAB PO PRN (21:24)
[2016-11-12] MEDS: CALCIUM CARBONATE 500 MG CHEWABLE TAB PO PRN (21:25)
[2016-11-12] MEDS: PATCH REMOVAL 1 EA PATCH TD SCH (22:10)
[2016-11-13] MEDS: HYDROmorphONE/DILAUDID 1 MG/ML SYR IVP PRN ×4 (02:11→15:57)
[2016-11-13] MEDS: PENICILLIN G POTASSIUM 4,000,000 UNIT in D5W 100 ML IV SCH ×4 (02:11→15:09)
[2016-11-13] MEDS: oxyCODONE IR 5 MG TAB PO PRN ×5 (03:27→17:25)
[2016-11-13 06:54] LABS: INTERPRETATION See Comments
[2016-11-13 07:27] VITALS: TEMP 98.2
--- NOTE | 2016-11-13 09:28 | PDIAF ---
- Diagnosis Diagnosis: diabetic foot wound osteomyelitis Code Status: Full Code - Medication Management Discharge Medications: Medications to Continue on Transfer Albuterol [Proventil Inhaler HFA (*)] 1 - 2 puffs IH Q4H PRN 11/07/16 [Last Taken Unknown] fentaNYL [Duragesic 25 MCG Patch (*)] 25 mcg TD Q72H 11/07/16 [Last Taken Unknown] Usp Antibiotics: vancomycine 1 gm IV q 24 thru 12/24/16 Usp Antibiotic Stop Date: 12/24/16 Discharge Medications: Refer to the Discharge Home Medication list for PRN reason. PICC Care - Routine: Yes - Orders Services needed: Registered Nurse, Certified Podiatry Doctor, Master Photographer Portrait Diet Recommendation: ADA 2000 consistent carb Diet Texture: Regular Texture Diet - Follow Up Care Current Providers and Referrals: NONE *PRIMARY CARE P,. [Primary Care Provider] -
--- NOTE | 2016-11-13 09:42 | PDIAF ---
- Diagnosis Diagnosis: cellulitis Code Status: Full Code - Medication Management Discharge Medications: Medications to Continue on Transfer Albuterol [Proventil Inhaler HFA (*)] 1 - 2 puffs IH Q4H PRN 11/07/16 [Last Taken Unknown] fentaNYL [Duragesic 25 MCG Patch (*)] 25 mcg TD Q72H 11/07/16 [Last Taken Unknown] Patient Transport Officer Antibiotic Stop Date: 12/24/16 Discharge Medications: Refer to the Discharge Home Medication list for PRN reason. PICC Care - Routine: N/A - Orders Diet Recommendation: ADA 2000 consistent carb Diet Texture: Regular Texture Diet - Follow Up Care Current Providers and Referrals: NONE *PRIMARY CARE P,. [Primary Care Provider] -
[2016-11-13] MEDS: PANTOPRAZOLE SODIUM 40 MG TAB PO SCH (09:45)
[2016-11-13] MEDS: FAMOTIDINE 20 MG TAB PO SCH (09:47)
[2016-11-13] MEDS: ENOXAPARIN 80 MG/0.8 ML SYR SC SCH (09:47)
[2016-11-13] MEDS: LIDOCAINE 5% 1 EA PATCH TD SCH (09:50)
--- NOTE | 2016-11-13 10:23 | HOSPPROG ---
Hospitalist Progress Note Assessment/Plan: DIAGNOSES: # Sepsis with Group A Strep Bacteremia with Right leg cellulitis (improving erythema overall, but will increased induration over calf) -on iv PCN, leg elevated -The central red area R calve medial is abscess as seen on US. I have asked Jeremy Catalan of surgery to perform I&D of this. # Pruritic right sided chest and back pain with CTA neg for PE and MRI negative for referred pain from Tspine infection suspect cute muscle spasm vs pleurisy # Segment of abnormality on leg doppler involving the common femoral vein, which may be the residual of previous surgery or partially recanalized deep vein thrombosis. # Left hip wound (present on admission) is no longer draining # History of chronic pain with opioid dependency -on home dose of duragesic and oxycodone # normacytic anemia PLANS: -I&D of abscess R calve -I think she is ready for DC, but needs ongoing abx. multi dose per day PCN is not really tenable for her. Will review with ID if we could switch to rocephin or ertapenam -ongoing wound care, can be done at surgery office as outpt -currently remains on anticoagulation SUBJECTIVE: less pain today no fever sxs able to walk more easily OBJECTIVE Vitals reviewed: stable without fever Exam: alert oriented skin warm dry color ok resps not labored lungs clear BSs heart regular abd soft nondistended nontender, bowel sounds present limbs notably less cellulitis today. There is still a small area centrally on medial R calve that is more raised and tender than the other areas. Centrally it still has a softer feel that is borderline for fluctuance,and this requires further evaluation. There is no sign of any necrosis anywhere. iv site ok Objective: Vital Signs Temp Pulse Resp BP Pulse Ox 36.8 C 92 16 109/75 92 11/13/16 07:26 11/13/16 07:26 11/13/16 07:26 11/13/16 07:26 11/13/16 07:26 Laboratory Results 11/10/16 05:40 11/10/16 05:40 11/12/16 11/13/16 11/14/16 06:59 06:59 06:59 Intake Total 1293 1869 360 Output Total 900 900 300 Balance 393 1619 60 ICD10 Worksheet Patient Problems: Problems Problem Status Onset Cellulitis of right leg Acute Superficial thrombophlebitis Acute
[2016-11-13] MEDS: fentaNYL 50 MCG PATCH TD SCH (10:48)
--- NOTE | 2016-11-13 10:51 | SOAPPROG ---
SOAP Progress Note Assessment/Plan: Assessment: Performed I&D of right leg abscess. Small amount of pus drained, approx 5cc, pt tolerated well. Full note to follow Ok to D/C with follow up in our office / --- explained to pt and put F/ U info in d/c summary Plan: 11/13/16 10:50 Objective: Vital Signs Temp Pulse Resp BP Pulse Ox 36.8 C 92 16 109/75 92 11/13/16 07:26 11/13/16 07:26 11/13/16 07:26 11/13/16 07:26 11/13/16 07:26 Laboratory Results 11/10/16 05:40 11/10/16 05:40 11/12/16 11/13/16 11/14/16 05:59 05:59 05:59 Intake Total 1293 2519 360 Output Total 900 900 300 Balance 393 1619 60 ICD10 Worksheet Patient Problems: Problems Problem Status Onset Cellulitis of right leg Acute Superficial thrombophlebitis Acute
[2016-11-13 11:24] VITALS: RESP 18
--- NOTE | 2016-11-13 12:08 | GCON ---
[f rep st] CONSULTATION REASON FOR CONSULTATION: Asked by Medicine to see this 41-year-old female, who was admitted with sepsis with group A strep bacteremia. Consultation for a right leg abscess. HISTORY OF PRESENT ILLNESS: The patient has had cellulitis on her right leg during this hospital course stay which has coalesced into an abscess demonstrated on ultrasound which was reviewed today. Presently, patient reports that the area is tender when touched. She has no fevers. She is feeling better overall and looking forward to leaving the hospital today. PAST MEDICAL HISTORY: Chronic back pain, asthma. ALLERGIES: Possibly Nucynta. MEDICATIONS: Penicillin, Dilaudid, fentanyl patch, lidocaine, Pepcid, Lovenox, Protonix, oxycodone, Valium, Tylenol, Zofran. REVIEW OF SYSTEMS: She had negative 10-point review of systems. PHYSICAL EXAMINATION: GENERAL: The patient is a pleasant female, alert, nontoxic appearance. CHEST: CTA bilaterally. HEART: Regular rhythm and rate. EXTREMITIES: Right leg demonstrates 2 areas of erythema over the right medial lower leg. Over the medial calf, there is an area approximately 1.5 x 2 inches of erythema that is very tender to touch. There is a small area approximately 1 inch x 1/2 inch of milder erythema that is less tender to palpation over the medial malleolus region. Full range of motion of the ankle without difficulty, full range of motion of the knee without difficulty. IMPRESSION: A 41-year-old female with right leg cellulitis, possible abscess. RECOMMENDATION: I reviewed the patient's ultrasound which showed a small fluid collection. I explained to her that I think incision and drainage will help her heal faster. The patient was consented for the procedure. PROCEDURE: The patient was consented. Area was prepped in a sterile fashion with Betadine. The skin was anesthetized with approximately 5 cc of lidocaine without epinephrine. A 2 cm incision was made, and approximately 5 mL of pus- like drainage but removed. The wound was then packed with 1/4-inch iodoform packing, approximately 2 inches in length. The wound was then covered with gauze and Kerlix. The patient was instructed to follow up in our office this Sunday or and to call for an appointment. It is okay for her to shower over the packing but she should try to keep the packing inside the wound. She can remove it herself Wednesday morning prior to her appointment in our office. Case reviewed and discussed with Dr Lopez who also saw the patient. /[id number]/MODL MTDD
--- NOTE | 2016-11-13 14:51 | PCMIDPN ---
Assessment/Plan: Assessment/Plan: * Sepsis due to group A strep bacteremia with associated right lower extremity cellulitis/abscess (drained today) and probable left hip abscess which has spontaneously drained: Repeat blood cultures pending to assess for clearing of bacteremia. Cellulitis over right lower extremity significantly improved. No cellulitis around left hip wound. Discussed with patient completing IV antibiotics outside of hospital - she states she is not an injection drug user and will not use her PICC line for any care other than treatment of her infection. Warned of dangers of using PICC line for drug use. Will arrange for completion of IV antibiotics at infusion center on [address]. Plan 10 days of therapy post-negative blood cultures. Will complete therapy with ceftriaxone 2 g IV daily for ease of outpatient administration. 11/13/16 14:47 Subjective: Feels much better. Reviewed clinical findings with patient. She denies any injection drug use. s/p - incision and drainage of small abscess right lower extremity earlier today. Objective: Vital Signs Temp Pulse Resp BP Pulse Ox 36.8 C 97 18 111/77 92 11/13/16 11:23 11/13/16 11:23 11/13/16 11:23 11/13/16 11:23 11/13/16 11:23 Microbiology 11/13/16 11:00 Gram Stain - Final Leg - Swab Laboratory Results 11/10/16 05:40 11/10/16 05:40 11/12/16 11/13/16 11/14/16 05:59 05:59 05:59 Intake Total 1293 2519 360 Output Total 900 900 300 Balance 393 1619 60 Pencillin (antibiotic therapy #4 post-negative blood cultures) Blood cultures no growth 11/09/16 - Physical Exam General Appearance: alert, no apparent distress EENT: No scleral icterus Extremities: inflammation (right lower extremity with marked decrease in cellulitis; packed abscess cavity with induration; left hip wound without surrounding cellulitis) Abdomen: non-tender, No distended - Line/s RUE PICC Lines: No drainage, No erythema ICD10 Worksheet Patient Problems: Problems Problem Status Onset Cellulitis of right leg Acute Superficial thrombophlebitis Acute
--- NOTE | 2016-11-13 14:56 | PDIAF ---
- Diagnosis Diagnosis: cellulitis/bacteremia Code Status: Full Code - Medication Management Discharge Medications: Medications to Continue on Transfer Albuterol [Proventil Inhaler HFA (*)] 1 - 2 puffs IH Q4H PRN 11/07/16 [Last Taken Unknown] fentaNYL [Duragesic 25 MCG Patch (*)] 25 mcg TD Q72H 11/07/16 [Last Taken Unknown] Retention Manager Antibiotics: ceftriaxone 2 g IV q24 Fdc Antibiotic Stop Date: 11/19/16 Discharge Medications: Refer to the Discharge Home Medication list for PRN reason. PICC Care - Routine: Yes - Orders Services needed: Registered Nurse, Certified Head Of Global Strategic Partnerships, Master Housing Case Manager Diet Recommendation: ADA 1999 consistent carb Diet Texture: Regular Texture Diet - Labs/Radiology CBC Date: 11/15/16 CMP Date: 11/15/16 Call or Fax Lab and Imaging Results to: Dr. Sam, - Follow Up Care Current Providers and Referrals: NONE *PRIMARY CARE P,. [Primary Care Provider] - Corbin Sam MD [Medical Doctor] - 11/20/16 2:00 pm
[2016-11-13] MEDS ORDERED: cefTRIAXone 2 GM in D5W 50 ML IV SCH (15:30)
[2016-11-13 15:37] VITALS: BP 139/92; PULSE 101; O2SAT 95
--- NOTE | 2016-11-13 15:40 | PDDCSUM ---
Discharge Summary Discharge Summary: DIAGNOSES: # Sepsis with Group A Strep Bacteremia with Right leg cellulitis (improving erythema overall, but will increased induration over calf) -on iv PCN, leg elevated -The central red area R calve medial is abscess as seen on US. I have asked Jeremy Catalan of surgery to perform I&D of this. # Cellulitis and small abscess of medial R calve, strep # Pruritic right sided chest and back pain with CTA neg for PE and MRI negative for referred pain from Tspine infection suspect cute muscle spasm vs pleurisy # Segment of abnormality on leg doppler involving the common femoral vein, which may be the residual of previous surgery or partially recanalized deep vein thrombosis. # Left hip wound (present on admission) is no longer draining # History of chronic pain with opioid dependency -on home dose of duragesic and oxycodone # normacytic anemia PROCEDURES: I&D of leg abscess US of leg COMPLICATIONS none HOSPITAL COURSE This patient came in with acute sepsis due to celluitis of her R leg. Blood cultures grew group A strep. She has responded very well to IV antibiotics with good resolution of sepsis and cellulitis, but did gradually develop a small abscess in the cellulitis area. This was I&D'd today with 5 ml purulent fluid removed. At this time she is stable for DC to home but needs ongoing abx for her infection. This is being arranged with daily antibiotic infusions at our outpatient infusion center, and f/u at [facility]. She will be getting wound care at Dr Lopez' office. There was a questionable finding of possible proximal short segment DVT of her leg. She was treated iwemmanuel myers here and given a prescription for eliquis to take home along w free 30 day trial card. Of note the pt has chronic pain syndrome. She is on chronic home prescribed narcotic. She states she was to have a f/u with her pain management physician during the time of this hospital stay, and has rescheduled for November 30. I have given her some pain medicine to last until then.
[2016-11-13 15:56] LABS: DILUTE RUSSELLS VIPER VENOM 1.3 ratio (0.0 - 1.1); INR 1.2; INTERPRETATION See Comments; PT 13.4 sec; PTT 28 sec (26 - 36)
[2016-11-16 12:41] LABS: HCV QT RNA PCR < 1 IU/mL (<15)
== END 2016-11-13 18:31 | disposition home or self-care (01) | DRG 872 ==
LOC: F3E 21:30
PROVIDERS: ADMIT Internal Medicine; ATTEND Internal Medicine
PROC: 02HV33Z Insertion of Infusion Device into Superior Vena Cava, Percutaneous Approach (ICD-10-PCS; 2016-11-07)
PROC: 0H9KXZZ Drainage of Right Lower Leg Skin, External Approach (ICD-10-PCS; principal; 2016-11-13)
DX: A40.0 Sepsis due to streptococcus, group A (principal); L03.115 Cellulitis of right lower limb; L02.416 Cutaneous abscess of left lower limb; R07.89 Other chest pain; B95.0 Streptococcus, group A, as the cause of diseases classified elsewhere; I80.01 Phlebitis and thrombophlebitis of superficial vessels of right lower extremity; M54.5 Low back pain; D64.9 Anemia, unspecified; F19.21 Other psychoactive substance dependence, in remission; R93.8 Abnormal findings on diagnostic imaging of other specified body structures; S81.811A Laceration without foreign body, right lower leg, initial encounter; W22.03XA Walked into furniture, initial encounter; Y92.003 Bedroom of unspecified non-institutional (private) residence as the place of occurrence of the external cause; D72.825 Bandemia; J45.909 Unspecified asthma, uncomplicated; Z79.51 Long term (current) use of inhaled steroids; Z87.891 Personal history of nicotine dependence
CPT/HCPCS: 80307; 81332-90; 81439-90; 81479-90; 83891-90; 83903-90; 83908-90; 85301-90; 85302-90; 85303-90; 85306-90; 85670-90; A9585; C1751; G0472; G0480; J0690; J0696; J1170; J1650; J1885; J2540; J2997; J3370; Q9967

== ENCOUNTER 2016-12-11 19:56 | Emergency (ER) | payer MEDICAID ==
--- NOTE | 2016-12-11 20:32 | EDPHY ---
H & P Stated Complaint: feverish for 1 week Time Seen by Provider: 12/11/16 20:32 HPI/ROS: CHIEF COMPLAINT: [ ] HISTORY OF PRESENT ILLNESS: [Need 4: Location, Duration, Severity, Quality, Context, Timing Modifying Factors, Associated S&S] REVIEW OF SYSTEMS: A comprehensive 10 point review of systems is otherwise negative aside from elements mentioned in the history of present illness. Source: Patient - Personal History Current Tetanus/Diphtheria Vaccine: Yes Current Tetanus Diphtheria and Acellular Pertussis (TDAP): Yes - Medical/Surgical History Hx Asthma: Yes Hx Chronic Respiratory Disease: No Hx Diabetes: No Hx Cardiac Disease: No Hx Renal Disease: No Hx Cirrhosis: No Hx Alcoholism: No Hx HIV/AIDS: No Hx Splenectomy or Spleen Trauma: No Other PMH: PMH- Chronic lower back pain, asthma, heart burn. no surgeries reported - Social History Smoking Status: Former smoker - Physical Exam Exam: General Appearance: [Alert, no distress] Eyes: [Pupils equal and round no pallor or injection] ENT, Mouth: [Mucous membranes moist] Respiratory: [There are no retractions, lungs are clear to auscultation] Cardiovascular: [Regular rate and rhythm] Gastrointestinal: [Abdomen is soft and nontender, no masses, bowel sounds normal] Neurological: [A&O, normal motor function, normal sensory exam, normal cranial nerves] Skin: [Warm and dry, no rashes] Musculoskeletal: [Neck is supple nontender] Extremities: [symmetrical, full range of motion] Psychiatric: [Patient is oriented X 3, there is no agitation] Constitutional: Initial Vital Signs Temperature (C) 36.8 C 12/11/16 20:10 Heart Rate 98 12/11/16 20:10 Respiratory Rate 18 12/11/16 20:10 Blood Pressure 132/92 H 12/11/16 20:10 O2 Sat (%) 96 12/11/16 20:10 O2 Delivery Mode Room Air Allergies/Adverse Reactions: tapentadol [From Nucynta] Allergy (Severe, Verified 11/07/16 20:41) Other-Enter Comments Home Medications: Medication Instructions Recorded Albuterol [Proventil Inhaler HFA 1 - 2 puffs IH Q4H PRN 11/07/16 (*)] Apixaban [Eliquis] 5 mg PO BID #60 tab 11/13/16 Pantoprazole Sodium [Protonix 40mg 40 mg PO BID #60 tab 11/13/16 (*)] fentaNYL [Duragesic 25 MCG Patch 25 mcg TD Q72H #6 patch 11/13/16 (*)] oxyCODONE IR [Oxycodone Ir (*)] 15 mg PO Q6 PRN #40 tab 11/13/16 Departure - Departure Referrals: [facility] [Other] - As per Instructions
--- NOTE | 2016-12-11 20:38 | EDPHY ---
H & P Stated Complaint: feverish for 1 week Time Seen by Provider: 12/11/16 20:32 HPI/ROS: CHIEF COMPLAINT: Fever, sore throat HISTORY OF PRESENT ILLNESS: This patient is a 41 year old female arriving with her children with a recent admission 11/07/16 for acute sepsis secondary to cellulitis complaining of subjective fever and sore throat onset one week ago. She states she has pleuritic right-sided chest pain secondary to a rib injury, but this is chronic and not related to her complaint today. She states she has been waking up sweaty , and reports subjective fever and sore throat. She is concerned this may be a recurrence of her infection last month. She endorses mild diarrhea. She denies cough, shortness of breath, vomiting, abdominal pain, dysuria, or other associated symptoms. REVIEW OF SYSTEMS: A 10 point review of systems was performed and is negative with the exception of the elements mentioned in the history of present illness. Source: Patient Exam Limitations: No limitations - Personal History Current Tetanus/Diphtheria Vaccine: Yes Current Tetanus Diphtheria and Acellular Pertussis (TDAP): Yes - Medical/Surgical History PMH: 1. Cellulitis. 2. Sepsis. 3. Asthma 4. Chronic back pain Hx Asthma: Yes Hx Chronic Respiratory Disease: No Hx Diabetes: No Hx Cardiac Disease: No Hx Renal Disease: No Hx Cirrhosis: No Hx Alcoholism: No Hx HIV/AIDS: No Hx Splenectomy or Spleen Trauma: No Other PMH: PMH- Chronic lower back pain, asthma, heart burn. no surgeries reported - Social History Smoking Status: Former smoker Additional Social History: Lives in [place]. Two young children at bedside. - Physical Exam Exam: General Appearance: Alert, no acute distress. BP 132/92. Afebrile. Eyes: Pupils equal and round, no conjunctival injection, no discharge. ENT, Mouth: Mucous membranes are moist, no oropharyngeal erythema or edema. Neck: No lymphadenopathy, supple. Respiratory: Lungs are clear to auscultation; no wheezes, rales, or rhonchi. Cardiovascular: Regular rate and rhythm; no murmur, rub, or gallop. Gastrointestinal: Abdomen is soft and non tender, no masses or organomegaly, bowel sounds normal. Skin: Warm and dry, no rashes, normal color. No warmth or erythema of extremities. Back: Nontender to palpation over the thoracolumbar spine. Extremities: No lower extremity edema, no calf tenderness or swelling. Pulses: 2+ dorsalis pedis pulses bilaterally. Neurological: Alert and oriented. Moving all four extremities easily and equally. Constitutional: Initial Vital Signs Temperature (C) 36.8 C 12/11/16 20:10 Heart Rate 98 12/11/16 20:10 Respiratory Rate 18 12/11/16 20:10 Blood Pressure 132/92 H 12/11/16 20:10 O2 Sat (%) 96 12/11/16 20:10 O2 Delivery Mode Room Air Allergies/Adverse Reactions: tapentadol [From Nucynta] Allergy (Severe, Verified 11/07/16 20:41) Other-Enter Comments Home Medications: Medication Instructions Recorded Albuterol [Proventil Inhaler HFA 1 - 2 puffs IH Q4H PRN 11/07/16 (*)] Apixaban [Eliquis] 5 mg PO BID #60 tab 11/13/16 Pantoprazole Sodium [Protonix 40mg 40 mg PO BID #60 tab 11/13/16 (*)] fentaNYL [Duragesic 25 MCG Patch 25 mcg TD Q72H #6 patch 11/13/16 (*)] oxyCODONE IR [Oxycodone Ir (*)] 15 mg PO Q6 PRN #40 tab 11/13/16 Medical Decision Making ED Course/Re-evaluation: This patient is a 41 year old female presenting today with a one week history of subjective fever and sore throat. She was admitted 11/07/16 for acute sepsis secondary to cellulitis in her right leg. She is concerned that this may be a recurrence of that infection. She does not have fever here today. She is not ill-appearing. Physical exam is unremarkable. I suspect viral pharyngitis unrelated to her previous infection. Plan to discharge home in good condition with instructions for management of symptoms. Reassurance provided. Return precautions discussed. The patient is comfortable with this plan. Differential Diagnosis: I considered a differential diagnosis including but not limited to pneumonia, urinary tract infection, cellulitis, viral syndrome, and influenza. Departure - Departure Disposition: Home, Routine, Self-Care Clinical Impression: Acute viral pharyngitis Condition: Good Instructions: Viral Syndrome (ED) Additional Instructions: 1. Follow up with your primary care provider for symptoms unresolved. 2. Take ibuprofen or Tylenol as directed below for fever or pain. 3. You can use Throat Coat tea with honey, throat lozenges, or salt water gargles for treatment of pain as well. 4. Return to the ED for increased fever, chills, nausea, vomiting, or other worsening of condition. Adult Pain & Fever Control: We recommend Acetaminophen (Tylenol) and Ibuprofen (Motrin,Advil) for pain and fever control. When fever is high or pain severe, both drugs can be used at the same time, but at different intervals. Please note the time differences. Your dose is: Acetaminophen 650mg every 4 to 6 hours Ibuprofen 400mg every 6-8 hours with food Note: do not take Acetaminophen with Hydrocodone (Vicodin, Lortab) or Oxycodone (Percocet). These medications also contain Acetaminophen. No more than 3000mg of Acetaminophen should be taken in 24 hours (for an adult). Referrals: [facility] [Other] - As per Instructions Report Scribed for: Mary Rosen Report Scribed by: Roxanne Clark Date of Report: 12/11/16 Time of Report: 20:45 Physician Review and Approval Statement: 12/16/16 21:42 Portions of this note were transcribed by the medical record clerk. I, Dr. Mary Rosen, personally performed the history, physical exam, and medical decision- making; and confirmed the accuracy of the information in the transcribed note.
[2016-12-11 21:00] VITALS: BP 130/80; PULSE 83; RESP 16; TEMP 98.1; O2SAT 97
== END 2016-12-11 21:00 | disposition home or self-care (01) ==
DX: J02.8 Acute pharyngitis due to other specified organisms (principal); B97.89 Other viral agents as the cause of diseases classified elsewhere; J45.909 Unspecified asthma, uncomplicated; Z79.01 Long term (current) use of anticoagulants; Z87.891 Personal history of nicotine dependence